=== PATIENT | female | born 1970 | race Caucasian/White ===

== ENCOUNTER 2018-06-09 06:05 | Day surgery (SDC) | payer OTHER ==
[~2018-06-09] VITALS: Ht 154.9 cm; Wt 83.9 kg
[2018-06-09] MEDS ORDERED: LISI5TAB18 PO (06:52)
[2018-06-09] MEDS ORDERED: BUPIVACAINE-MPF 0.25% 30 ML VIAL INJ ONE (07:15)
[2018-06-09] MEDS ORDERED: CEFAZOLIN SODIUM 1 GM/D5W PM 50 ML IV SCH (07:20)
[2018-06-09] MEDS ORDERED: DEXAMETHASONE 4 MG/ML VIAL IVP ONE ×2 (07:26→09:00)
[2018-06-09] MEDS ORDERED: PROPOFOL 200 MG/20 ML VIAL IV ONE ×2 (07:26→09:00)
[2018-06-09] MEDS ORDERED: DESFLURANE 240 ML BTL INH ONE ×2 (07:26→09:00)
[2018-06-09] MEDS ORDERED: ROCURONIUM 50 MG/5 ML VIAL IV ONE ×2 (07:26→09:00)
[2018-06-09] MEDS ORDERED: ONDANSETRON 4 MG/2 ML VIAL IVP ONE ×2 (07:26→09:00)
[2018-06-09] MEDS ORDERED: SUCCINYLCHOLINE CHLORIDE 200 MG/10 ML VIAL IV ONE ×2 (07:26→09:00)
[2018-06-09] MEDS ORDERED: MIDAZOLAM 2 MG/2 ML VIAL ONE (07:32)
[2018-06-09] MEDS ORDERED: fentaNYL 0.05 MG/ML VIAL ONE (07:32)
[2018-06-09] MEDS ORDERED: ONDANSETRON 4 MG/2 ML VIAL IVP PRN (08:00)
[2018-06-09] MEDS ORDERED: NACL 0.9% 1,000 ML IV SCH (08:51)
[2018-06-09] MEDS ORDERED: ONDANSETRON 4 MG/2 ML VIAL IV PRN (08:55)
[2018-06-09] MEDS ORDERED: ACETAMINOPHEN 325 MG TAB PO PRN (08:55)
[2018-06-09] MEDS ORDERED: MORPHINE SULFATE 4 MG/ML SYR IV PRN (08:55)
[2018-06-09] MEDS ORDERED: HYDROmorphone 1 MG/ML AMP IVP PRN (08:55)
[2018-06-09] MEDS ORDERED: MORPHINE SULFATE 2 MG/ML SYR IVP PRN (08:55)
[2018-06-09] MEDS ORDERED: HYDROcodone/APAP 5/325 MG 1 TAB TAB PO PRN (08:55)
[2018-06-09] MEDS: HYDROmorphone 1 MG/ML AMP IVP PRN ×3 (09:30→09:40)
[2018-06-09] MEDS ORDERED: HYDROmorphone PFS 2 MG/ML SYR ONE (09:35)
== END 2018-06-09 11:15 | disposition home or self-care (01) ==
LOC: MMU 06:05 → MED 06:05
PROVIDERS: ATTEND Surgery
DX: K80.10 Calculus of gallbladder with chronic cholecystitis without obstruction (principal); I10 Essential (primary) hypertension; E78.5 Hyperlipidemia, unspecified; E66.9 Obesity, unspecified; Z68.35 Body mass index [BMI] 35.0-35.9, adult; Z79.899 Other long term (current) drug therapy; Z90.710 Acquired absence of both cervix and uterus; Z80.3 Family history of malignant neoplasm of breast
CPT/HCPCS: 36415; 47562; 71045; 82374; 82948; 86886; 86900; 86901; 88304; 93005; J0330; J0690; J1100; J1170; J2250; J2405; J2704; J3010; J3490; J7030